=== PATIENT | female | born 2000 | race Caucasian/White ===

== ENCOUNTER 2020-05-18 10:12 | Day surgery (SDC) | payer OTHER ==
[2020-05-18] MEDS ORDERED: hydrALAZINE 20 MG/ML VIAL SLOW IVP PRN (11:19)
[2020-05-18 12:03] VITALS: BMI 34.0
[2020-05-18 12:21] LABS: Creatinine, Urine 132.7 mg/dL (47-110)
[2020-05-18 13:21] LABS: #Monocytes 0.7 10x3/uL (0.0-1.1); #Neutrophils 7.4 10x3/uL (1.5-8.4); %Basophils 0.3 % (0.0-2.0); %Eosinophils 0.1 % (0.0-6.0); %Lymphocytes 15.4 % (18.0-47.0); %Monocytes 7.2 % (0.0-10.0); %Neutrophils 76.4 % (40.0-75.0); Hemoglobin 9.9 g/dL (12.0-15.5); Mean Corpuscular HGB CONC 32.2 g/dL (32.0-36.0); Mean Corpuscular Hemoglobin 26.3 pg (27.0-33.0); Mean Corpuscular Volume 81.6 fl (81.6-98.3); Mean Platelet Volume 10.5 fl (7.4-10.4); Platelet Count 231 10x3/uL (150-450); RBC Distribution Width 13.3 % (11.5-14.5); Red Blood Cell (RBC) Count 3.76 10x6/uL (3.90-5.03); White Blood Cell (WBC) Count 9.7 10x3/uL (3.5-10.5)
[2020-05-18 13:31] LABS: ALT (SGPT) 10 U/L (8-55); AST (SGOT) 20 U/L (5-30); Albumin 3.1 g/dL (3.5-5.0); Alkaline Phosphatase 175 U/L (40-100); Anion Gap 11 mmol/L (10-20); BUN (Urea Nitrogen) 6 mg/dL (8.4-21.0); Bilirubin, Total 0.3 mg/dL (0.2-1.2); Calc. Creatinine Clearance 207 mL/min (70-130); Calcium 8.4 mg/dL (7.8-10.44); Carbon Dioxide 22 mmol/L (22-29); Chloride 108 mmol/L (98-107); Glucose 71 mg/dL (70-105); Potassium 3.9 mmol/L (3.5-5.1); Protein, Total 6.1 g/dL (6.0-8.3); Sodium 137 mmol/L (136-145); Uric Acid 5.1 mg/dL (2.6-6.0)
[2020-05-18] MEDS ORDERED: Acetaminophen 500 MG TAB PO SCH (14:00)
== END 2020-05-18 15:10 | disposition home health service (06) ==
LOC: CSHLD/OP 10:12
PROVIDERS: ATTEND Student in an Organized Health Care Education/Training Program
DX: O12.03 Gestational edema, third trimester (principal); O34.03 Maternal care for unspecified congenital malformation of uterus, third trimester; Q51.10 Doubling of uterus with doubling of cervix and vagina without obstruction; Z3A.38 38 weeks gestation of pregnancy
CPT/HCPCS: 80053; 82570; 84156; 84550; 85025; 99284

== ENCOUNTER 2020-05-24 18:00 | Inpatient (IN) | payer OTHER ==
[2020-05-24] MEDS ORDERED: NS / Oxytocin 40 units/1000ml 1,000 ML IV PRN (20:58)
[2020-05-24] MEDS ORDERED: Promethazine HCl 25 MG/ML VIAL IM PRN (20:58)
[2020-05-24] MEDS ORDERED: Lidocaine 1% (PF) 30 ML VIAL SC PRN (20:58)
[2020-05-24] MEDS ORDERED: Ondansetron PF 4 MG/2 ML Vial IVP PRN (20:58)
[2020-05-24] MEDS ORDERED: hydrALAZINE 20 MG/ML VIAL SLOW IVP PRN (20:58)
[2020-05-24 22:14] VITALS: BMI 34.4
[2020-05-24 22:45] LABS: Hemoglobin 9.5 g/dL (12.0-15.5); Mean Corpuscular HGB CONC 32.1 g/dL (32.0-36.0); Mean Corpuscular Hemoglobin 25.7 pg (27.0-33.0); Platelet Count 243 10x3/uL (150-450); RBC Distribution Width 13.7 % (11.5-14.5); White Blood Cell (WBC) Count 10.8 10x3/uL (3.5-10.5)
[2020-05-24 23:05] LABS: Syphilis Antibody Nonreactive (Nonreactive); Syphilis Antibody Index 0.05 S/CO (<1.00 Non-Reactive)
[2020-05-24 23:06] LABS: Hep B Surf Ag Non-Reactive S/CO (NonReactive)
[2020-05-24] MEDS ORDERED: NS w/ Oxytocin 30 units 500 ML ONE (23:26)
[2020-05-24] MEDS: Lactated Ringer's 1,000 ML IV SCH (23:34)
[2020-05-24 23:39] LABS: HBSAg Index 0.18 S/CO (0-0.99)
[2020-05-25] MEDS: Lactated Ringer's 1,000 ML IV SCH ×2 (07:11→11:18)
[2020-05-25] MEDS ORDERED: Fentanyl 4 mcg/Bup 0.1% Cadd 100 ML ONE (08:57)
[2020-05-25] MEDS ORDERED: Acetaminophen 325 MG TAB PO PRN (11:19)
[2020-05-25] MEDS ORDERED: Lactated Ringer's 500 ML IV PRN (11:19)
[2020-05-25] MEDS ORDERED: diphenhydrAMINE 50 MG/ML VIAL IVP PRN (11:19)
[2020-05-25] MEDS ORDERED: Ondansetron PF 4 MG/2 ML Vial IVP PRN (11:19)
[2020-05-25] MEDS ORDERED: Naloxone HCl 0.4 mg/ml Vial IVP PRN ×2 (11:19)
[2020-05-25] MEDS ORDERED: Promethazine HCl 25 MG/ML VIAL IM PRN (11:19)
[2020-05-25] MEDS ORDERED: Communication Order-Pharmacy FS SCH (11:30)
[2020-05-25] MEDS ORDERED: Fentanyl 4 mcg/Bupivacaine 0.1% Cassette 100 ML EPIDURAL SCH (11:30)
[2020-05-25] MEDS ORDERED: ePHEDrine Sulfate 50 MG/10 ML VIAL SLOW IVP PRN (11:34)
[2020-05-25] MEDS ORDERED: Methylergonovine 0.2 MG/ML VIAL ONE (14:59)
[2020-05-25] MEDS ORDERED: Misoprostol 200 MCG TAB ONE (14:59)
[2020-05-25] MEDS ORDERED: Carboprost 250 MCG/ML AMP ONE (14:59)
[2020-05-25] MEDS ORDERED: NS w/ Oxytocin 30 units 500 ML ONE (16:30)
[2020-05-25] MEDS ORDERED: cefOXitin 2 GM in Sodium Chloride 0.9% 100 ML IVPB SCH (17:00)
[2020-05-25] MEDS ORDERED: cefOXitin Sodium/Dextrose,Iso 2 GM in Premix Bag 1 BAG IVPB SCH (17:30)
[2020-05-25] MEDS ORDERED: NS / Oxytocin 40 units/1000ml 1,000 ML IV SCH (20:51)
[2020-05-25] MEDS ORDERED: Misoprostol 200 MCG TAB VAG PRN (20:51)
[2020-05-25] MEDS ORDERED: Lanolin Ointment 7 GM TUBE TOP PRN (20:51)
[2020-05-25] MEDS ORDERED: Milk Of Magnesia 30 ML UDCUP PO PRN (20:51)
[2020-05-25] MEDS ORDERED: Benzocaine-Menthol 82.5 ML CAN TOP PRN (20:51)
[2020-05-25] MEDS ORDERED: Methylergonovine 0.2 MG TAB PO PRN (20:51)
[2020-05-25] MEDS ORDERED: Bisacodyl 10 MG SUPP PR PRN (20:51)
[2020-05-25] MEDS ORDERED: Preparation H Ointment 28 GM TUBE PR PRN (20:51)
[2020-05-25] MEDS ORDERED: hydrALAZINE 20 MG/ML VIAL SLOW IVP PRN (20:51)
[2020-05-25] MEDS ORDERED: Docusate Calcium (SURFAK) 240 MG CAP PO SCH (21:00)
[2020-05-25] MEDS ORDERED: HYDROcodone/Acetaminophen 5/325 mg Tablet PO PRN ×2 (22:00)
[2020-05-25] MEDS: Ibuprofen 800 MG TAB PO SCH (22:16)
[2020-05-26] MEDS ORDERED: Furosemide 20 MG/2 ML VIAL SLOW IVP SCH ×2 (00:15→11:00)
[2020-05-26 05:45] LABS: #Monocytes 1.2 10x3/uL (0.0-1.1); #Neutrophils 13.2 10x3/uL (1.5-8.4); %Basophils 0.2 % (0.0-2.0); %Eosinophils 0.2 % (0.0-6.0); %Lymphocytes 11.6 % (18.0-47.0); %Monocytes 7.4 % (0.0-10.0); %Neutrophils 79.9 % (40.0-75.0); Hemoglobin 8.3 g/dL (12.0-15.5); Mean Corpuscular HGB CONC 32.3 g/dL (32.0-36.0); Mean Corpuscular Hemoglobin 26.1 pg (27.0-33.0); Mean Corpuscular Volume 80.8 fl (81.6-98.3); Mean Platelet Volume 10.5 fl (7.4-10.4); Platelet Count 199 10x3/uL (150-450); RBC Distribution Width 13.7 % (11.5-14.5); Red Blood Cell (RBC) Count 3.18 10x6/uL (3.90-5.03); White Blood Cell (WBC) Count 16.6 10x3/uL (3.5-10.5)
[2020-05-26 05:52] LABS: ALT (SGPT) 13 U/L (8-55); AST (SGOT) 25 U/L (5-30); Albumin 2.5 g/dL (3.5-5.0); Alkaline Phosphatase 144 U/L (40-100); Anion Gap 11 mmol/L (10-20); BUN (Urea Nitrogen) 6 mg/dL (8.4-21.0); Bilirubin, Total 0.5 mg/dL (0.2-1.2); Calc. Creatinine Clearance 178 mL/min (70-130); Calcium 7.9 mg/dL (7.8-10.44); Carbon Dioxide 25 mmol/L (22-29); Chloride 108 mmol/L (98-107); Globulin 2.3 g/dL (2.4-3.5); Glucose 74 mg/dL (70-105); Potassium 4.2 mmol/L (3.5-5.1); Protein, Total 4.8 g/dL (6.0-8.3); Sodium 140 mmol/L (136-145)
[2020-05-26] MEDS: Ibuprofen 800 MG TAB PO SCH ×2 (05:58→15:26)
[2020-05-26 06:48] LABS: Creatinine, Urine Less than 20.00 mg/dL (47-110); Protein, Urine Random Quant Less than 10 mg/dL (1-14)
[2020-05-26] MEDS ORDERED: Docusate Calcium (SURFAK) 240 MG CAP PO PRN (06:50)
[2020-05-26] MEDS ORDERED: Adacel (T-DAP) 0.5 ML SYRINGE IM ONE (09:00)
[2020-05-26] MEDS: Polyethylene Glycol 3350 17 GM Packet PO SCH (12:06)
[2020-05-26] MEDS: Docusate 100 MG CAP PO SCH (12:08)
[2020-05-26] MEDS: Ferrous Sulfate 325 MG TAB PO SCH (12:08)
[2020-05-26] MEDS: Milk Of Magnesia 30 ML UDCUP PO SCH (12:08)
[2020-05-26] MEDS: Prenatal Vitamin 1 TAB PO SCH (12:14)
[2020-05-27] MEDS: Ibuprofen 800 MG TAB PO SCH ×3 (00:35→08:11)
[2020-05-27] MEDS: Ferrous Sulfate 325 MG TAB PO SCH ×2 (00:35→08:13)
[2020-05-27] MEDS: Docusate 100 MG CAP PO SCH ×2 (01:42→08:11)
[2020-05-27] MEDS: Milk Of Magnesia 30 ML UDCUP PO SCH (08:10)
[2020-05-27] MEDS: Polyethylene Glycol 3350 17 GM Packet PO SCH (08:10)
[2020-05-27] MEDS: Prenatal Vitamin 1 TAB PO SCH (08:11)
[2020-05-27 08:36] VITALS: BP 130/82; TEMP 98.1
== END 2020-05-27 12:50 | disposition home or self-care (01) | DRG 768 ==
LOC: CSHLD 20:53 → CSHPP 05-25 21:02
PROVIDERS: ADMIT Family Medicine; ATTEND Family Medicine
PROC: 4A0HXCZ Measurement of Products of Conception, Cardiac Rate, External Approach (ICD-10-PCS; 2020-05-24)
PROC: 10E0XZZ Delivery of Products of Conception, External Approach (ICD-10-PCS; principal; 2020-05-25)
PROC: 0W8NXZZ Division of Female Perineum, External Approach (ICD-10-PCS; 2020-05-25)
PROC: 0DQP0ZZ Repair Rectum, Open Approach (ICD-10-PCS; 2020-05-25)
DX: O34.03 Maternal care for unspecified congenital malformation of uterus, third trimester (principal); Z37.0 Single live birth; O70.3 Fourth degree perineal laceration during delivery; O34.63 Maternal care for abnormality of vagina, third trimester; O99.214 Obesity complicating childbirth; E66.9 Obesity, unspecified; D64.9 Anemia, unspecified; O12.05 Gestational edema, complicating the puerperium; O99.02 Anemia complicating childbirth; Q51.21 Complete doubling of uterus; Z3A.39 39 weeks gestation of pregnancy; Q51.10 Doubling of uterus with doubling of cervix and vagina without obstruction
CPT/HCPCS: 36415; 51702; 80053; 82570; 84156; 84550; 85025; 85027; 86780; 86850; 86900; 86901; 87340; 87635; J0694; J1940; J2405; J2590; U0003; U0005

== ENCOUNTER 2020-06-16 16:56 | Emergency (ER) | payer OTHER ==
[2020-06-16] MEDS ORDERED: Acetaminophen 500 MG TAB ONE (19:59)
[2020-06-17 13:05] LABS: SARS-CoV-2 PCR by NAA Not Detected (NotDetected)
== END 2020-06-16 20:16 | disposition home or self-care (01) ==
LOC: CSHERS 16:56
DX: J06.9 Acute upper respiratory infection, unspecified (principal); Z20.822 Contact with and (suspected) exposure to COVID-19
CPT/HCPCS: 87081; 87430; 87635; 87804; 99283; U0003; U0005

== ENCOUNTER 2021-09-13 12:37 | Day surgery (SDC) | payer OTHER ==
[2021-09-13 12:58] VITALS: BMI 33.5
[2021-09-13 13:42] LABS: Hemoglobin 9.5 g/dL (12.0-15.5); Mean Corpuscular HGB CONC 32.2 g/dL (32.0-36.0); Mean Corpuscular Hemoglobin 24.5 pg (27.0-33.0); Mean Corpuscular Volume 76.2 fl (81.6-98.3); Mean Platelet Volume 9.8 fl (7.4-10.4); Platelet Count 310 10x3/uL (150-450); RBC Distribution Width 16.4 % (11.5-14.5); Red Blood Cell (RBC) Count 3.87 10x6/uL (3.90-5.03); White Blood Cell (WBC) Count 14.7 10x3/uL (3.5-10.5)
[2021-09-13 14:02] LABS: Bilirubin Neg (Negative); Blood, Urine Negative (Negative); Glucose, Urine (Dipstick) Normal (Negative); Ketone, Urine Negative (Negative); Leukocyte 25 (Negative); Nitrite Negative (Negative); Protein, Urine (Dipstick) Negative (Neg-Trace); Specific Gravity, Urine 1.005 (1.002-1.036); Urobilinogen Normal mg/dL (Less than 2)
[2021-09-13 14:03] LABS: Clarity Clear (Clear)
[2021-09-13 14:08] LABS: Amphetamine Not Detected (NotDetected); Barbiturates Screen Not Detected (NotDetected); Benzodiazepine Screen Not Detected (NotDetected); Cocaine Metabolite Screen Not Detected (NotDetected); Methadone Not Detected (NotDetected); Methamphetamine Not Detected (NotDetected); Opiate Screen Not Detected (NotDetected); Oxycodone Screen Not Detected (NotDetected); Phencyclidine (PCP) Not Detected (NotDetected); THC/Cannabinoid Screen Not Detected (NotDetected); Tricyclic Screen Not Detected (NotDetected)
[2021-09-13 14:15] LABS: HIV (1/2) Antibody/Antigen Non-Reactive (NonReactive); HIV 1/2 INDEX 0.11 S/CO (<1.00); Syphilis Antibody Nonreactive (Nonreactive); Syphilis Antibody Index 0.07 S/CO (<1.00 Non-Reactive)
[2021-09-13 14:16] LABS: Bacteria/HPF None Seen HPF (None Seen); RBC/HPF None Seen HPF (0-3); Squamous Epithelial 0-3 HPF (0-3); WBC/HPF 0-3 HPF (0-3)
[2021-09-13 14:40] LABS: SARS-CoV-2 NAA Rapid Test DETECTED (NotDetected)
[2021-09-13 15:35] LABS: Hep B Surf Ag Non-Reactive S/CO (NonReactive)
[2021-09-13] MEDS ORDERED: Fluconazole 100 MG TAB PO SCH (16:00)
[2021-09-13] MEDS ORDERED: NIRMATRELVIR 150 MG/RITONAVIR 100 MG TABLET PO SCH ×2 (16:00→21:00)
[2021-09-13 16:24] LABS: HBSAg Index 0.19 S/CO (0-0.99)
[2021-09-14 01:01] LABS: HBSAB Concentration Less than 8.00 mIU/mL; Hep B Surf AB Non-Reactive (NonReactive)
[2021-09-14] MEDS ORDERED: Fluconazole 100 MG TAB PO SCH (16:00)
[2021-09-14 16:57] LABS: Chlamydia by PCR Not Detected (NotDetected); GC by PCR Not Detected (NotDetected)
== END 2021-09-13 16:22 | disposition home or self-care (01) ==
LOC: CSHLD/OP 12:37
PROVIDERS: ATTEND Obstetrics & Gynecology
DX: O98.512 Other viral diseases complicating pregnancy, second trimester (principal); U07.1 COVID-19; O98.812 Other maternal infectious and parasitic diseases complicating pregnancy, second trimester; B37.3 Candidiasis of vulva and vagina; O09.32 Supervision of pregnancy with insufficient antenatal care, second trimester; Z3A.25 25 weeks gestation of pregnancy
CPT/HCPCS: 36415; 76805; 80306; 81001; 85027; 86706; 86780; 86850; 86900; 86901; 87340; 87389; 87480; 87491; 87510; 87591; 87660

== ENCOUNTER 2021-10-11 22:01 | Emergency (ER) | payer OTHER ==
[2021-10-11 23:11] LABS: #Basophils 0.1 10x3/uL (0.0-0.2); #Eosinphils 0.1 10x3/uL (0.0-0.5); #Monocytes 1.1 10x3/uL (0.0-1.1); #Neutrophils 12.3 10x3/uL (1.5-8.4); %Basophils 0.3 % (0.0-2.0); %Eosinophils 0.6 % (0.0-6.0); %Lymphocytes 14.5 % (18.0-47.0); %Neutrophils 75.5 % (40.0-75.0); Hemoglobin 9.5 g/dL (12.0-15.5); Mean Corpuscular HGB CONC 32.8 g/dL (32.0-36.0); Mean Corpuscular Hemoglobin 23.6 pg (27.0-33.0); Mean Platelet Volume 9.6 fl (7.4-10.4); Platelet Count 310 10x3/uL (150-450); RBC Distribution Width 16.3 % (11.5-14.5); Red Blood Cell (RBC) Count 4.03 10x6/uL (3.90-5.03); White Blood Cell (WBC) Count 16.3 10x3/uL (3.5-10.5)
[2021-10-11 23:25] LABS: ALT (SGPT) 11 U/L (8-55); AST (SGOT) 15 U/L (5-34); Albumin 3.6 g/dL (3.5-5.0); Alkaline Phosphatase 101 U/L (40-100); Anion Gap 14 mmol/L (10-20); BUN (Urea Nitrogen) 10 mg/dL (7.0-18.7); Bilirubin, Total 0.2 mg/dL (0.2-1.2); Calc. Creatinine Clearance 0 mL/min (70-130); Calcium 9.3 mg/dL (7.8-10.44); Carbon Dioxide 20 mmol/L (22-29); Chloride 106 mmol/L (98-107); Estimated GFR 123; Globulin 3.6 g/dL (2.4-3.5); Glucose 86 mg/dL (70-105); Potassium 3.9 mmol/L (3.5-5.1); Protein, Total 7.2 g/dL (6.0-8.3); Sodium 136 mmol/L (136-145)
[2021-10-11 23:45] LABS: Bilirubin Neg (Negative); Blood, Urine 10 (Negative); Clarity Cloudy (Clear); Glucose, Urine (Dipstick) Normal (Negative); Ketone, Urine 5 mg/dL (Negative); Leukocyte 100 (Negative); Nitrite Negative (Negative); Protein, Urine (Dipstick) 15 mg/dl (Neg-Trace); Specific Gravity, Urine 1.025 (1.002-1.036); Urobilinogen Normal mg/dL (Less than 2)
[2021-10-12 00:03] LABS: Bacteria/HPF 3+ HPF (None Seen); Mucous/LPF 4+ LPF (<2+); RBC/HPF 0-3 HPF (0-3); Squamous Epithelial 21-50 HPF (0-3)
[2021-10-12] MEDS ORDERED: Iopamidol 370 76% 100 ML VIAL ONE (10:29)
== END 2021-10-12 01:08 | disposition home or self-care (01) ==
LOC: CSHERS 22:01
DX: O23.43 Unspecified infection of urinary tract in pregnancy, third trimester (principal); N39.0 Urinary tract infection, site not specified; O99.613 Diseases of the digestive system complicating pregnancy, third trimester; K21.9 Gastro-esophageal reflux disease without esophagitis; Z3A.30 30 weeks gestation of pregnancy
CPT/HCPCS: 71045; 71275; 80053; 81003; 81015; 84484; 85025; 85379; 93005

== ENCOUNTER 2021-10-12 15:28 | Emergency (ER) | payer OTHER ==
[2021-10-12 17:25] LABS: #Basophils 0.1 10x3/uL (0.0-0.2); #Eosinphils 0.1 10x3/uL (0.0-0.5); #Neutrophils 11.6 10x3/uL (1.5-8.4); %Basophils 0.3 % (0.0-2.0); %Eosinophils 0.5 % (0.0-6.0); %Lymphocytes 14.1 % (18.0-47.0); %Monocytes 6.4 % (0.0-10.0); %Neutrophils 76.6 % (40.0-75.0); Hemoglobin 8.5 g/dL (12.0-15.5); Mean Corpuscular Hemoglobin 23.2 pg (27.0-33.0); Mean Corpuscular Volume 74.7 fl (81.6-98.3); Platelet Count 285 10x3/uL (150-450); RBC Distribution Width 16.4 % (11.5-14.5); Red Blood Cell (RBC) Count 3.67 10x6/uL (3.90-5.03); White Blood Cell (WBC) Count 15.1 10x3/uL (3.5-10.5)
[2021-10-12 18:26] LABS: ALT (SGPT) 10 U/L (8-55); AST (SGOT) 19 U/L (5-34); Albumin 3.2 g/dL (3.5-5.0); Alkaline Phosphatase 92 U/L (40-100); Anion Gap 14 mmol/L (10-20); BUN (Urea Nitrogen) 7 mg/dL (7.0-18.7); Bilirubin, Total 0.3 mg/dL (0.2-1.2); Calc. Creatinine Clearance 0 mL/min (70-130); Calcium 8.9 mg/dL (7.8-10.44); Carbon Dioxide 18 mmol/L (22-29); Chloride 104 mmol/L (98-107); Estimated GFR 133; Globulin 3.8 g/dL (2.4-3.5); Glucose 72 mg/dL (70-105); Potassium 4.2 mmol/L (3.5-5.1); Sodium 132 mmol/L (136-145)
== END 2021-10-12 19:00 | disposition home or self-care (01) ==
LOC: CSHERS 15:28
DX: O26.893 Other specified pregnancy related conditions, third trimester (principal); R07.9 Chest pain, unspecified; O23.43 Unspecified infection of urinary tract in pregnancy, third trimester; O99.013 Anemia complicating pregnancy, third trimester; Z3A.30 30 weeks gestation of pregnancy; N39.0 Urinary tract infection, site not specified; K21.9 Gastro-esophageal reflux disease without esophagitis
CPT/HCPCS: 36415; 71045; 71275; 80053; 81003; 81015; 84484; 85025; 85379; 93005; Q9967

== ENCOUNTER 2021-10-15 11:57 | Day surgery (SDC) | payer OTHER ==
[2021-10-15 12:28] VITALS: BMI 32.4
[2021-10-15] MEDS ORDERED: hydrALAZINE 20 MG/ML VIAL SLOW IVP PRN (12:47)
== END 2021-10-15 14:30 | disposition home health service (06) ==
LOC: CSHLD/OP 11:57
PROVIDERS: ATTEND Obstetrics & Gynecology
DX: O36.8130 Decreased fetal movements, third trimester, not applicable or unspecified (principal); Z3A.29 29 weeks gestation of pregnancy; O23.43 Unspecified infection of urinary tract in pregnancy, third trimester; N39.0 Urinary tract infection, site not specified; O99.013 Anemia complicating pregnancy, third trimester; D64.9 Anemia, unspecified; Z79.899 Other long term (current) drug therapy; Z98.890 Other specified postprocedural states
CPT/HCPCS: 76819; 99282

== ENCOUNTER 2021-10-19 15:14 | Day surgery (SDC) | payer OTHER ==
[2021-10-19 15:39] VITALS: BMI 32.1
[2021-10-19] MEDS ORDERED: hydrALAZINE 20 MG/ML VIAL SLOW IVP PRN (17:08)
[2021-10-19 18:11] LABS: Bilirubin Neg (Negative); Blood, Urine Negative (Negative); Clarity Clear (Clear); Glucose, Urine (Dipstick) Normal (Negative); Ketone, Urine 5 mg/dL (Negative); Leukocyte 500 (Negative); Nitrite Negative (Negative); Protein, Urine (Dipstick) Negative (Neg-Trace); Specific Gravity, Urine 1.005 (1.002-1.036); Urobilinogen Normal mg/dL (Less than 2)
[2021-10-19 18:14] LABS: Urine Culture Reflex No No
[2021-10-19 18:22] LABS: RBC/HPF 0-3 HPF (0-3)
[2021-10-19 18:24] LABS: Bacteria/HPF 2+ HPF (None Seen)
== END 2021-10-19 18:45 | disposition home or self-care (01) ==
LOC: CSHLD/OP 15:14 → EDSTATUS 15:20 → CSHLD/OP 15:27
PROVIDERS: ATTEND Obstetrics & Gynecology
DX: O26.893 Other specified pregnancy related conditions, third trimester (principal); R42 Dizziness and giddiness; R53.1 Weakness; R11.0 Nausea; R07.89 Other chest pain; Z3A.32 32 weeks gestation of pregnancy
CPT/HCPCS: 36416; 81001; 93005; 93010; 99283

== ENCOUNTER 2021-10-22 11:33 | Emergency (ER) | payer OTHER ==
[2021-10-22 12:03] LABS: #Monocytes 0.7 10x3/uL (0.0-1.1); #Neutrophils 9.4 10x3/uL (1.5-8.4); %Basophils 0.3 % (0.0-2.0); %Eosinophils 0.2 % (0.0-6.0); %Lymphocytes 14.5 % (18.0-47.0); %Monocytes 5.7 % (0.0-10.0); %Neutrophils 78.1 % (40.0-75.0); Hemoglobin 9.2 g/dL (12.0-15.5); Mean Corpuscular HGB CONC 31.9 g/dL (32.0-36.0); Mean Corpuscular Hemoglobin 23.3 pg (27.0-33.0); Mean Corpuscular Volume 72.9 fl (81.6-98.3); Platelet Count 274 10x3/uL (150-450); RBC Distribution Width 18.3 % (11.5-14.5); Red Blood Cell (RBC) Count 3.95 10x6/uL (3.90-5.03)
[2021-10-22 12:35] LABS: ALT (SGPT) 7 U/L (8-55); AST (SGOT) 13 U/L (5-34); Albumin 3.3 g/dL (3.5-5.0); Alkaline Phosphatase 92 U/L (40-100); Anion Gap 13 mmol/L (10-20); BUN (Urea Nitrogen) 6 mg/dL (7.0-18.7); Bilirubin, Total 0.4 mg/dL (0.2-1.2); Calc. Creatinine Clearance 0 mL/min (70-130); Calcium 8.7 mg/dL (7.8-10.44); Carbon Dioxide 21 mmol/L (22-29); Chloride 106 mmol/L (98-107); Estimated GFR 130; Globulin 3.1 g/dL (2.4-3.5); Glucose 79 mg/dL (70-105); Lipase 26 U/L (8-78); Potassium 4.2 mmol/L (3.5-5.1); Protein, Total 6.4 g/dL (6.0-8.3); Sodium 136 mmol/L (136-145)
[2021-10-22] MEDS ORDERED: Ondansetron ODT 4 MG TAB ONE (12:46)
[2021-10-22] MEDS ORDERED: Acetaminophen 325 MG TAB ONE (12:46)
== END 2021-10-22 14:04 | disposition home or self-care (01) ==
LOC: CSHERS 11:33
DX: O99.891 Other specified diseases and conditions complicating pregnancy (principal); R07.9 Chest pain, unspecified; R10.30 Lower abdominal pain, unspecified; Z3A.32 32 weeks gestation of pregnancy
CPT/HCPCS: 36415; 71045; 80053; 83690; 84484; 85025; 93005; Q0162

== ENCOUNTER 2021-10-22 15:03 | Day surgery (SDC) | payer OTHER ==
[2021-10-22] MEDS ORDERED: hydrALAZINE 20 MG/ML VIAL SLOW IVP PRN (15:20)
[2021-10-22 15:46] VITALS: BMI 34.2
[2021-10-22 15:56] LABS: Bilirubin Neg (Negative); Blood, Urine 10 (Negative); Clarity Clear (Clear); Glucose, Urine (Dipstick) Normal (Negative); Ketone, Urine 150 mg/dL (Negative); Leukocyte Negative (Negative); Nitrite Negative (Negative); Protein, Urine (Dipstick) Negative (Neg-Trace); Specific Gravity, Urine 1.015 (1.002-1.036); Urobilinogen Normal mg/dL (Less than 2); pH, Urine 6.5 (5.0-9.0)
[2021-10-22 16:04] LABS: RBC/HPF 0-3 HPF (0-3); Squamous Epithelial 0-3 HPF (0-3); WBC/HPF 0-3 HPF (0-3)
[2021-10-22 16:05] LABS: Bacteria/HPF Rare-Few HPF (None Seen); Mucous/LPF 1+ LPF (<2+); Transitional Epithelial 0-3 HPF (None Seen)
[2021-10-22] MEDS ORDERED: Butorphanol Tartrate 1 MG/ML VIAL SLOW IVP PRN (17:29)
[2021-10-22] MEDS ORDERED: Lactated Ringer's 1,000 ML IV SCH (17:30)
== END 2021-10-22 20:50 | disposition home or self-care (01) ==
LOC: CSHLD/OP 15:03
PROVIDERS: ATTEND Obstetrics & Gynecology
DX: O26.893 Other specified pregnancy related conditions, third trimester (principal); R10.2 Pelvic and perineal pain; M54.9 Dorsalgia, unspecified; N89.8 Other specified noninflammatory disorders of vagina; Z3A.32 32 weeks gestation of pregnancy
CPT/HCPCS: 51701; 81003; 81015; 87480; 87510; 87660; 96360; 96361; 99284; J0595

== ENCOUNTER 2021-10-24 12:13 | Emergency (ER) | payer OTHER ==
[2021-10-24] MEDS ORDERED: Ondansetron ODT 4 MG TAB ONE (14:32)
== END 2021-10-24 15:21 | disposition home or self-care (01) ==
LOC: CSHERS 12:13
DX: F41.9 Anxiety disorder, unspecified (principal); D64.9 Anemia, unspecified; Z20.822 Contact with and (suspected) exposure to COVID-19; Z20.828 Contact with and (suspected) exposure to other viral communicable diseases
CPT/HCPCS: 87804; Q0162; U0003; U0005

== ENCOUNTER 2021-11-11 01:16 | Day surgery (SDC) | payer OTHER ==
[2021-11-11] MEDS ORDERED: Cyclobenzaprine 10 MG TAB PO SCH (03:15)
== END 2021-11-11 06:45 | disposition home or self-care (01) ==
LOC: CSHLD/OP 01:16
PROVIDERS: ATTEND Obstetrics & Gynecology
DX: O47.03 False labor before 37 completed weeks of gestation, third trimester (principal); O99.891 Other specified diseases and conditions complicating pregnancy; M54.9 Dorsalgia, unspecified; M54.2 Cervicalgia; Z3A.35 35 weeks gestation of pregnancy; Z79.899 Other long term (current) drug therapy
CPT/HCPCS: 99282

== ENCOUNTER 2021-11-15 12:18 | Day surgery (SDC) | payer OTHER ==
[2021-11-15 13:09] VITALS: BMI 32.4
[2021-11-15] MEDS ORDERED: hydrALAZINE 20 MG/ML VIAL SLOW IVP PRN (14:05)
[2021-11-15] MEDS ORDERED: Acetaminophen/Codeine 30-300mg Tablet PO SCH (15:00)
[2021-11-15] MEDS ORDERED: Acetaminophen 500 MG TAB PO SCH (15:00)
== END 2021-11-15 14:29 | disposition home or self-care (01) ==
LOC: CSHLD/OP 12:18
PROVIDERS: ATTEND Obstetrics & Gynecology
DX: O26.893 Other specified pregnancy related conditions, third trimester (principal); R10.2 Pelvic and perineal pain; M54.50 Low back pain, unspecified; O98.813 Other maternal infectious and parasitic diseases complicating pregnancy, third trimester; B37.3 Candidiasis of vulva and vagina; Z3A.35 35 weeks gestation of pregnancy
CPT/HCPCS: 87480; 87510; 87660; 99283

== ENCOUNTER 2021-11-28 15:35 | Day surgery (SDC) | payer OTHER ==
[2021-11-28 16:15] VITALS: BMI 32.4
[2021-11-28 17:06] LABS: Fetal Membranes Rupture No Membranes Rupture (No Rupture)
[2021-11-28] MEDS ORDERED: hydrALAZINE 20 MG/ML VIAL SLOW IVP PRN (18:05)
== END 2021-11-28 18:10 | disposition home or self-care (01) ==
LOC: CSHLD/OP 15:35
PROVIDERS: ATTEND Obstetrics & Gynecology
DX: O26.893 Other specified pregnancy related conditions, third trimester (principal); R10.2 Pelvic and perineal pain; O99.343 Other mental disorders complicating pregnancy, third trimester; F41.9 Anxiety disorder, unspecified; O98.813 Other maternal infectious and parasitic diseases complicating pregnancy, third trimester; B37.3 Candidiasis of vulva and vagina; Z3A.38 38 weeks gestation of pregnancy
CPT/HCPCS: 84112; 87480; 87510; 87660; 99285

== ENCOUNTER 2021-12-02 14:18 | Inpatient (IN) | payer OTHER ==
[~2021-12-02 14:18] MED LIST: Bupivacaine/Epinephrine 0.25% 30 ML VIAL ONE
[2021-12-02] MEDS ORDERED: Ondansetron PF 4 MG/2 ML Vial IVP PRN ×3 (14:51→22:39)
[2021-12-02] MEDS ORDERED: Docusate 100 MG CAP PO PRN (14:51)
[2021-12-02] MEDS ORDERED: Diphenoxylate HCl/Atropine Tablet PO PRN ×2 (14:51)
[2021-12-02] MEDS ORDERED: Acetaminophen 500 MG TAB PO PRN (14:51)
[2021-12-02] MEDS ORDERED: HYDROcodone/Acetaminophen 5/325 mg Tablet PO PRN ×2 (14:51→22:39)
[2021-12-02] MEDS ORDERED: hydrALAZINE 20 MG/ML VIAL SLOW IVP PRN ×2 (14:51→22:39)
[2021-12-02] MEDS ORDERED: Methylergonovine 0.2 MG/ML VIAL IM PRN ×2 (14:51→22:39)
[2021-12-02] MEDS ORDERED: Carboprost 250 MCG/ML AMP IM PRN (14:51)
[2021-12-02] MEDS ORDERED: Misoprostol 200 MCG TAB PR PRN (14:51)
[2021-12-02] MEDS ORDERED: Ibuprofen 800 MG TAB PO PRN (14:51)
[2021-12-02] MEDS ORDERED: Promethazine HCl 25 MG/ML VIAL IM PRN ×3 (14:51→22:39)
[2021-12-02] MEDS ORDERED: Lidocaine 1% (PF) 30 ML VIAL SC PRN (14:51)
[2021-12-02] MEDS ORDERED: Butorphanol Tartrate 1 MG/ML VIAL SLOW IVP PRN (14:51)
[2021-12-02] MEDS ORDERED: NS w/ Oxytocin 30 units 500 ML IV SCH ×3 (15:00→22:45)
[2021-12-02] MEDS ORDERED: Lactated Ringer's 1,000 ML IV SCH (15:00)
[2021-12-02 15:50] LABS: Hemoglobin 9.3 g/dL (12.0-15.5); Mean Corpuscular HGB CONC 30.4 g/dL (32.0-36.0); Mean Corpuscular Hemoglobin 21.6 pg (27.0-33.0); Mean Corpuscular Volume 71.2 fl (81.6-98.3); Mean Platelet Volume 10.4 fl (7.4-10.4); Platelet Count 285 10x3/uL (150-450); RBC Distribution Width 17.6 % (11.5-14.5); White Blood Cell (WBC) Count 12.9 10x3/uL (3.5-10.5)
[2021-12-02 16:01] VITALS: BMI 32.8
[2021-12-02 16:55] LABS: HBSAg Index 0.22 S/CO (0-0.99); Hep B Surf Ag Non-Reactive S/CO (NonReactive); Syphilis Antibody Nonreactive (Nonreactive); Syphilis Antibody Index 0.07 S/CO (<1.00 Non-Reactive)
[2021-12-02] MEDS ORDERED: Fentanyl 2 mcg/Bup 0.1% Cadd 100 ML ONE (16:55)
[2021-12-02] MEDS ORDERED: diphenhydrAMINE 50 MG/ML VIAL IVP PRN (18:53)
[2021-12-02] MEDS ORDERED: ePHEDrine Sulfate 50 MG/10 ML VIAL SLOW IVP PRN (18:53)
[2021-12-02] MEDS ORDERED: Moisturizing Cream (Eucerin) 113 GM JAR TOP PRN (18:53)
[2021-12-02] MEDS ORDERED: Acetaminophen 325 MG TAB PO PRN (18:53)
[2021-12-02] MEDS ORDERED: Naloxone HCl 0.4 mg/ml Vial IVP PRN ×2 (18:53)
[2021-12-02] MEDS ORDERED: Fentanyl 2 mcg/Bupivacaine 0.1% Cassette 100 ML EPIDURAL SCH (19:00)
[2021-12-02] MEDS ORDERED: Communication Order-Pharmacy FS SCH (19:00)
[2021-12-02] MEDS ORDERED: Lactated Ringer's 500 ML IV PRN (19:14)
[2021-12-02] MEDS ORDERED: diphenhydrAMINE 25 MG CAP PO PRN (22:39)
[2021-12-02] MEDS ORDERED: Bisacodyl 10 MG SUPP PR PRN (22:39)
[2021-12-02] MEDS ORDERED: Boostrix 0.5 ML (Tdap) VIAL (>/=7 yrs of age) IM ONE (22:39)
[2021-12-02] MEDS ORDERED: Zolpidem Tartrate 5 MG TAB PO PRN (22:39)
[2021-12-02] MEDS ORDERED: Benzocaine-Menthol 82.5 ML CAN TOP PRN (22:39)
[2021-12-02] MEDS ORDERED: Misoprostol 200 MCG TAB VAG PRN (22:39)
[2021-12-02] MEDS ORDERED: Varicella virus, LIVE 0.5 ML VIAL SC ONE (22:39)
[2021-12-02] MEDS ORDERED: Milk Of Magnesia 30 ML UDCUP PO PRN (22:39)
[2021-12-02] MEDS ORDERED: Preparation H Ointment 28 GM TUBE PR PRN (22:39)
[2021-12-02] MEDS ORDERED: Measles/Mumps/Rubella 10 MCG/0.5 ML VIAL SC ONE (22:39)
[2021-12-02] MEDS ORDERED: Lanolin Ointment 7 GM TUBE TOP PRN (22:39)
[2021-12-02] MEDS ORDERED: Docusate 100 MG CAP PO SCH (23:00)
[2021-12-02] MEDS ORDERED: Ibuprofen 800 MG TAB PO SCH (23:00)
[2021-12-03 05:12] LABS: Hemoglobin 8.9 g/dL (12.0-15.5); Mean Corpuscular HGB CONC 30.8 g/dL (32.0-36.0); Mean Corpuscular Hemoglobin 21.9 pg (27.0-33.0); Mean Corpuscular Volume 71.2 fl (81.6-98.3); Mean Platelet Volume 10.4 fl (7.4-10.4); Platelet Count 230 10x3/uL (150-450); RBC Distribution Width 17.8 % (11.5-14.5); Red Blood Cell (RBC) Count 4.06 10x6/uL (3.90-5.03); White Blood Cell (WBC) Count 16.2 10x3/uL (3.5-10.5)
[2021-12-03] MEDS: Ibuprofen 800 MG TAB PO SCH ×3 (05:43→21:32)
[2021-12-03] MEDS: Docusate 100 MG CAP PO SCH ×2 (09:47→21:33)
[2021-12-03] MEDS: Prenatal Vitamin 1 TAB PO SCH (09:47)
[2021-12-03] MEDS: Ferrous Sulfate 325 MG TAB PO SCH ×2 (09:47→16:26)
[2021-12-03] MEDS ORDERED: Calcium Carbonate 500 MG ChewTAB PO PRN (22:19)
[2021-12-04] MEDS: Ibuprofen 800 MG TAB PO SCH (05:06)
[2021-12-04 08:15] VITALS: BP 148/63; TEMP 97.8
[2021-12-04] MEDS: Docusate 100 MG CAP PO SCH (09:22)
[2021-12-04] MEDS: Prenatal Vitamin 1 TAB PO SCH (09:23)
[2021-12-04] MEDS: Ferrous Sulfate 325 MG TAB PO SCH (09:23)
== END 2021-12-04 14:30 | disposition home or self-care (01) | DRG 807 ==
LOC: CSHLD 14:18 → CSHPP 23:05
PROVIDERS: ADMIT Obstetrics & Gynecology; ATTEND Obstetrics & Gynecology
PROC: 10E0XZZ Delivery of Products of Conception, External Approach (ICD-10-PCS; principal; 2021-12-02)
DX: O60.14X0 Preterm labor third trimester with preterm delivery third trimester, not applicable or unspecified (principal); Z37.0 Single live birth; Z3A.36 36 weeks gestation of pregnancy; O99.344 Other mental disorders complicating childbirth; F41.9 Anxiety disorder, unspecified
CPT/HCPCS: 36415; 51702; 85027; 86762; 86780; 86850; 86900; 86901; 87340; J2405; J2590; J7120